=== PATIENT | male | born 1995 | race Caucasian/White ===

== ENCOUNTER 2019-05-29 11:55 | Observation (INO) | payer BC, SELFPAY ==
[2019-05-29] VITALS (11 sets, daily range): BP systolic 105–127; BP diastolic 61–86; PULSE 69–95; RESP 15–20; TEMP 36.9–37.4; O2SAT 96–100; BMI 22.1
--- NOTE | 2019-05-29 | PATH_ITS ---
[facility] Accession Number: [id number] . 01 Material submitted: . appendix - APPENDIX . 02 Diagnosis: Appendix, Appendectomy: Acute appendicitis with serositis. No evidence of neoplasm. [facility] 05/31/2019 1155 Local . 02 Electronically signed: . Pepe Mirza MD, PhD, Pathologist NPI- [id number] . 01 Gross description: . Received in formalin, labeled appendix, is an intact appendix (length-6.5 cm, diameter-1.0 cm), with hernandez-pink, focally exudate-covered serosa and attached mesoappendix (up to 1.4 cm in depth). The resection margin is received stapled. The lumen contains red-brown turbid fluid. The wall is up to 0.3 cm thick. No nodules, masses or lesions are identified. The resection margins is inked blue. Section code: (A1) resection margin en face and three additional vendor representatives serial sections; (A2) one-half of the bivalved tip. ([id number]) /MRV 05/30/2019 1054 Local . 02 Pathologist provided ICD-10: K35.80 . 02 CPT . 697894 Performed at: 01 [facility] [address] [facility], [place], [place] [id number] MD Doc Paolmares MD Phone: [phone] Performed at: 02 [facility] [address] [place], [place] [id number] MD Melissa Saxena MD Phone: [phone]
--- NOTE | 2019-05-29 12:11 | ED_ITS ---
HPI - Abdominal Pain <WES Dave-BC - Last Filed: 05/29/19 16:05> General Chief Complaint: Abdominal Pain Stated Complaint: Suspects appendicitis Time Seen by Provider: 05/29/19 12:07 Source: patient Mode of arrival: Ambulatory Limitations: no limitations History of Present Illness HPI narrative: The patient is a 24-year-old male nonsmoker who denies pertinent medical history presents with a chief complaint of 3-4 days of abdominal pain. Started periumbilical and radiate down to his right lower quadrant starting yesterday. He states that his pain has been getting worse since yesterday and especially this morning. He denies any fevers, nausea vomiting or diarrhea. Last solid intake was salad last night then he drank some kombucha this morning. States he thinks he is constipated last bowel movement was yesterday. He did not have 1 this morning. He states that he initially attributed his pain to ?adjusting to quarantine and staying home.He states he does not have a primary care provider, is from [place] and staying with his family up in town here. He states that his pain is worse with movement. He denies any testicular pain, denies urinary symptoms. Related Data Home Medications Medication Instructions Recorded Confirmed multivitamin 1 cap PO DAILY 05/29/19 05/29/19 Previous Rx's Medication Instructions Recorded acetaminophen [Tylenol] 650 mg PO QID PRN #60 cap 05/29/19 oxycodone 5 mg PO Q6H PRN #30 tab 05/29/19 Allergies Allergy/AdvReac Type Severity Reaction Status Date / Time No Known Drug Allergies Allergy Verified 05/29/19 12:05 Review of Systems <TORI Dave - Last Filed: 05/29/19 16:05> Review of Systems Narrative: GENERAL: Denies chills, fatigue, malaise, fever, sweats. HEENT: Denies sinus pain, ear pain, sore throat, difficulty swallowing, dizziness. RESPIRATORY: Denies dyspnea, cough, wheezing, hemoptysis, sputum. CARDIOVASCULAR: Denies chest pain, palpitations, orthopnea, edema, GASTROINTESTINAL: See HPI : Denies dysuria, frequency, incontinence, hematuria, urinary retention. MUSCULOSKELETAL: denies weakness, joint pain, or bony pain SKIN: Denies rash, skin lesions, or other NEUROLOGIC: Denies weakness, headache, numbness, change in speech, confusion, seizures, incoordination. PSYCHIATRIC: No concerning psychosocial issues. 12 point review of systems is negative except for those stated above Patient History <CASA DaveP-BC - Last Filed: 05/29/19 16:05> Medical History (Updated 05/29/19 @ 16:22 by Cassie Avitia RN) Closed left arm fracture (Acute) Surgical History (Updated 05/29/19 @ 15:54 by Evaristo Haywood MD) History of orthopedic surgery (Acute) Social History Smoking Status: Never smoker Smoking Status: Never smoker alcohol intake frequency: 0-2 drinks per day Substance Use Type: does not use Exam <Silvana Savage TORI - Last Filed: 05/29/19 16:05> Narrative Exam Narrative: GENERAL: This is a well-nourished, well-developed patient, appears uncomfortable HEAD: Atraumatic. Normocephalic. No temporal or scalp tenderness. EYES: Pupils equal round and reactive. Extraocular motions intact. No scleral icterus. No injection or drainage. ENT: Nose without bleeding, purulent drainage or septal hematoma. Throat without erythema, tonsillar hypertrophy or exudate. Uvula midline. Airway patent. NECK: Trachea midline. No JVD or lymphadenopathy. Supple, nontender, no meningeal signs. CARDIOVASCULAR: Regular rate and rhythm without murmurs, gallops, or rubs. RESPIRATORY: Clear to auscultation. Breath sounds equal bilaterally. No wheezes, rales, or rhonchi. GASTROINTESTINAL: Abdomen soft, diffusely tender with active bowel sounds, nondistended. No hepato-splenomegaly, or palpable masses. Pain to palpation right lower quadrant. Rebound tenderness noted. Positive peritoneal signs. EXTREMITIES: No clubbing, cyanosis, or edema. No joint tenderness, effusion, or edema noted. BACK: Nontender without deformity or crepitance. No flank tenderness. NEURO: AOx3. SKIN: No rash or erythema on visible skin Initial Vital Signs Initial Vital Signs: Vital Signs Temperature 98.5 F 05/29/19 12:00 Pulse Rate 72 05/29/19 12:00 Respiratory Rate 18 05/29/19 12:00 Blood Pressure 111/70 05/29/19 12:00 Pulse Oximetry 100 05/29/19 12:00 <Kamilah Trejo MD - Last Filed: 05/30/19 07:05> Initial Vital Signs Initial Vital Signs: Vital Signs Temperature 98.5 F 05/29/19 12:00 Pulse Rate 72 05/29/19 12:00 Respiratory Rate 18 05/29/19 12:00 Blood Pressure 111/70 05/29/19 12:00 Pulse Oximetry 100 05/29/19 12:00 Scores <TORI Dave - Last Filed: 05/29/19 16:05> GCS Craig coma scale eye opening: Spontaneous [place] coma scale verbal response: Orientated [place] coma scale motor response: Obey commands Craig coma scale total score: 15 Course <TORI Dave - Last Filed: 05/29/19 16:05> Orders Ordered: Discontinued Medications Benzocaine (Cepacol Lozenge) 1 each PO PRN PRN PRN Reason: Sore Throat Bupivacaine HCl (Sensorcaine 0.5% (Pf)) 30 ml INJ NOW ONE Stop: 05/29/19 17:16 Last Admin: 05/29/19 17:15 Dose: 30 ml Documented by: DEMOND Fentanyl (Sublimaze) 0 mcg IV Q5M PRN PRN Reason: Pain, Moderate (4-6) Hydromorphone HCl (Dilaudid) 0 mg IV Q5M PRN PRN Reason: Pain, Moderate (4-6) Hydroxyzine HCl (Vistaril) 25 mg IM NOW PRN PRN Reason: Pain, Mild (1-3) Sodium Chloride (Normal Saline 0.9%) 1,000 mls @ 1,000 mls/hr IV BOLUS ONE Stop: 05/29/19 13:09 Last Infusion: 05/29/19 14:00 Dose: 0 mls/hr Documented by: Admin: 05/29/19 12:52 Dose: 1,000 mls/hr Documented by: AL Piperacillin/Tazobactam/Dextrose (Zosyn) 3.375 gm in 50 mls @ 100 mls/hr IV NOW ONE Stop: 05/29/19 15:26 Last Infusion: 05/29/19 15:35 Dose: 0 mls/hr Documented by: Admin: 05/29/19 15:05 Dose: 100 mls/hr Documented by: AUDRA Sodium Chloride (Normal Saline 0.9%) 1,000 mls @ 150 mls/hr IV CONT MC Last Infusion: 05/29/19 15:54 Dose: 0 mls/hr Documented by: Admin: 05/29/19 15:05 Dose: 150 mls/hr Documented by: AUDRA Lactated Ringer's (Lactated Ringers) 1,000 mls @ 125 mls/hr IV NOW ONE Stop: 05/30/19 01:04 Last Infusion: 05/29/19 18:25 Dose: 0 mls/hr Documented by: Admin: 05/29/19 17:07 Dose: 125 mls/hr Documented by: Infusion: 05/29/19 17:06 Dose: 0 mls/hr Documented by: Admin: 05/29/19 16:05 Dose: 125 mls/hr Documented by: DANNY Lactated Ringer's (Lactated Ringers) 1,000 mls @ 42 mls/hr IV CONT MC Lorazepam (Ativan) 0.25 mg IV NOW PRN PRN Reason: Anxiety Meperidine HCl (Demerol) 25 mg IV PACUNOW PRN PRN Reason: Moderate pain or shivering Metoclopramide HCl (Reglan) 10 mg IV NOW PRN PRN Reason: Nausea And Vomiting Morphine Sulfate (Morphine) 2 mg IV NOW ONE Stop: 05/29/19 12:11 Last Admin: 05/29/19 12:52 Dose: 2 mg Documented by: AL Ondansetron HCl (Zofran) 4 mg IV NOW ONE Stop: 05/29/19 12:07 Last Admin: 05/29/19 12:52 Dose: 4 mg Documented by: AL Ondansetron HCl (Zofran) 4 mg IV NOW PRN PRN Reason: Nausea And Vomiting Oxycodone HCl (Percolone) 5 mg PO PACUNOW PRN PRN Reason: Mild or moderate pain Last Admin: 05/29/19 17:50 Dose: 5 mg Documented by: KRYSTAL Vital Signs Vital signs: Vital Signs - 8 hr 05/29/19 12:00 05/29/19 12:43 05/29/19 13:30 Temperature 98.5 F Pulse Rate 72 72 69 Respiratory Rate 18 18 18 Blood Pressure 111/70 Blood Pressure [Left Arm] 115/67 110/62 Pulse Oximetry 100 100 100 <Kamilah Trejo MD - Last Filed: 05/30/19 07:05> Orders Ordered: Discontinued Medications Benzocaine (Cepacol Lozenge) 1 each PO PRN PRN PRN Reason: Sore Throat Bupivacaine HCl (Sensorcaine 0.5% (Pf)) 30 ml INJ NOW ONE Stop: 05/29/19 17:16 Last Admin: 05/29/19 17:15 Dose: 30 ml Documented by: DEMOND Fentanyl (Sublimaze) 0 mcg IV Q5M PRN PRN Reason: Pain, Moderate (4-6) Hydromorphone HCl (Dilaudid) 0 mg IV Q5M PRN PRN Reason: Pain, Moderate (4-6) Hydroxyzine HCl (Vistaril) 25 mg IM NOW PRN PRN Reason: Pain, Mild (1-3) Sodium Chloride (Normal Saline 0.9%) 1,000 mls @ 1,000 mls/hr IV BOLUS ONE Stop: 05/29/19 13:09 Last Infusion: 05/29/19 14:00 Dose: 0 mls/hr Documented by: Admin: 05/29/19 12:52 Dose: 1,000 mls/hr Documented by: AL Piperacillin/Tazobactam/Dextrose (Zosyn) 3.375 gm in 50 mls @ 100 mls/hr IV NOW ONE Stop: 05/29/19 15:26 Last Infusion: 05/29/19 15:35 Dose: 0 mls/hr Documented by: Admin: 05/29/19 15:05 Dose: 100 mls/hr Documented by: AUDRA Sodium Chloride (Normal Saline 0.9%) 1,000 mls @ 150 mls/hr IV CONT MC Last Infusion: 05/29/19 15:54 Dose: 0 mls/hr Documented by: Admin: 05/29/19 15:05 Dose: 150 mls/hr Documented by: SCANAPO Lactated Ringer's (Lactated Ringers) 1,000 mls @ 125 mls/hr IV NOW ONE Stop: 05/30/19 01:04 Last Infusion: 05/29/19 18:25 Dose: 0 mls/hr Documented by: Admin: 05/29/19 17:07 Dose: 125 mls/hr Documented by: Infusion: 05/29/19 17:06 Dose: 0 mls/hr Documented by: Admin: 05/29/19 16:05 Dose: 125 mls/hr Documented by: DANNY Lactated Ringer's (Lactated Ringers) 1,000 mls @ 42 mls/hr IV CONT CM Lorazepam (Ativan) 0.25 mg IV NOW PRN PRN Reason: Anxiety Meperidine HCl (Demerol) 25 mg IV PACUNOW PRN PRN Reason: Moderate pain or shivering Metoclopramide HCl (Reglan) 10 mg IV NOW PRN PRN Reason: Nausea And Vomiting Morphine Sulfate (Morphine) 2 mg IV NOW ONE Stop: 05/29/19 12:11 Last Admin: 05/29/19 12:52 Dose: 2 mg Documented by: AL Ondansetron HCl (Zofran) 4 mg IV NOW ONE Stop: 05/29/19 12:07 Last Admin: 05/29/19 12:52 Dose: 4 mg Documented by: AL Ondansetron HCl (Zofran) 4 mg IV NOW PRN PRN Reason: Nausea And Vomiting Oxycodone HCl (Percolone) 5 mg PO PACUNOW PRN PRN Reason: Mild or moderate pain Last Admin: 05/29/19 17:50 Dose: 5 mg Documented by: KRYSTAL Vital Signs Vital signs: Vital Signs - 8 hr 05/29/19 12:00 05/29/19 12:43 05/29/19 13:30 Temperature 98.5 F Pulse Rate 72 72 69 Respiratory Rate 18 18 18 Blood Pressure 111/70 Blood Pressure [Left Arm] 115/67 110/62 Pulse Oximetry 100 100 100 MDM - Abdominal Pain <TORI Dave - Last Filed: 05/29/19 16:05> Lab Data Result diagrams: 05/29/19 12:40 05/29/19 12:40 Labs: Lab Results 05/29/19 05/29/19 05/29/19 Range/Units 12:40 12:40 12:40 WBC 13.5 H (4.5-11.0) X10^3/uL RBC 4.66 (4.5-5.9) X10^6/uL Hgb 15.3 (13.5-17.5) g/dL Hct 43.8 (41-53) % MCV 94.0 (80-100) fL MCH 32.8 (26-34) PG MCHC 34.9 (30-36) % RDW 12.1 (11.6-14.8) % Plt Count 170 (150-400) X10^3/uL Neut % (Auto) 87.3 H (50-75) % Lymph % (Auto) 6.0 L (25-40) % [place] % (Auto) 6.2 (3-14) % Eos % (Auto) 0.3 L (2-4) % Baso % (Auto) 0.2 (0-2) % Neut # (Auto) 59430 H (5839-6673) /uL Lymph # (Auto) 800 L (0430-6818) /uL [place] # (Auto) 800 (0-900) /uL Eos # (Auto) 0 (0-450) /uL Baso # (Auto) 0 (0-100) /uL PT 12.0 (10.1-12.7) SECONDS INR 1.0 (0.9-1.3) APTT 32 (26.4-36.2) SECONDS Sodium 136 L (137-145) mmol/L Potassium 4.5 (3.4-5.1) mmol/L Chloride 100 (98-107) mmol/L Carbon Dioxide 30 (22-32) mmol/L BUN 11 (9-20) mg/dL Creatinine 0.66 (0.66-1.25) mg/dL Estimated GFR > 60.0 (>60) mL/min BUN/Creatinine Ratio 16.7 (6-22) Glucose 95 (70-100) mg/dL Calcium 9.5 (8.4-10.2) mg/dL Total Bilirubin 1.2 (0.2-1.3) mg/dL AST 26 (17-59) IU/L ALT 16 (<50) IU/L Alkaline Phosphatase 59 (38-126) U/L Total Protein 8.3 H (6.3-8.2) g/dL Albumin 4.8 (3.5-5.0) g/dL Globulin 3.5 (1.7-4.1) g/dL Albumin/Globulin Ratio 1.4 (1.0-2.8) Amylase (30-110) U/L Lipase < 10 L (23-300) U/L 05/28/ Range/Units 12:40 WBC (4.5-11.0) X10^3/uL RBC (4.5-5.9) X10^6/uL Hgb (13.5-17.5) g/dL Hct (41-53) % MCV (80-100) fL MCH (26-34) PG MCHC (30-36) % RDW (11.6-14.8) % Plt Count (150-400) X10^3/uL Neut % (Auto) (50-75) % Lymph % (Auto) (25-40) % [place] % (Auto) (3-14) % Eos % (Auto) (2-4) % Baso % (Auto) (0-2) % Neut # (Auto) (6699-6911) /uL Lymph # (Auto) (3308-3019) /uL [place] # (Auto) (0-900) /uL Eos # (Auto) (0-450) /uL Baso # (Auto) (0-100) /uL PT (10.1-12.7) SECONDS INR (0.9-1.3) APTT (26.4-36.2) SECONDS Sodium (137-145) mmol/L Potassium (3.4-5.1) mmol/L Chloride (98-107) mmol/L Carbon Dioxide (22-32) mmol/L BUN (9-20) mg/dL Creatinine (0.66-1.25) mg/dL Estimated GFR (>60) mL/min BUN/Creatinine Ratio (6-22) Glucose (70-100) mg/dL Calcium (8.4-10.2) mg/dL Total Bilirubin (0.2-1.3) mg/dL AST (17-59) IU/L ALT (<50) IU/L Alkaline Phosphatase (38-126) U/L Total Protein (6.3-8.2) g/dL Albumin (3.5-5.0) g/dL Globulin (1.7-4.1) g/dL Albumin/Globulin Ratio (1.0-2.8) Amylase 41 (30-110) U/L Lipase (23-300) U/L Point of care testing: Urine Dip Bedside Urine Glucose Negative Bedside Urine Bilirubin - Negative Bedside Urine Ketone - Negative Urine Specific [place] 1.015 Bedside Urine Occult Blood - Negative Bedside Urine pH 8.5 Bedside Urine Protein - Negative Bedside Urine Urobilinogen - Negative Bedside Urine Nitrite - Negative Bedside Urine Leukocytes - Negative Esterase Imaging Data Abdominal x-ray: Radiologist's Impression: [address] [place] [id number] XRay Report Signed Patient: Hemal Rutledge PMR#: [id number] : 1995Acct:[id number] Age/Sex: 24 / MDate of Service: 05/29/19 Loc: ED Accession Number: [id number] Procedure: XR acute abdomen series Ordering Provider: Silvana Savage PROCEDURE: XR ACUTE ABDOMEN SERIES INDICATIONS: abd pain TECHNIQUE: One view chest and two views of the abdomen were acquired. COMPARISON: None. FINDINGS: Surgical changes and devices: There is good fixation is seen of the distal right clavicle. Chest: Lungs are clear. Heart size is normal. No pleural effusions. No pneumoperitoneum. Abdomen: Bowel gas pattern is normal. A moderate amount of stool is seen within the colon. No suspicious calcifications. Visualized solid organ contours appear normal. Bones: No suspicious bony lesions. IMPRESSION: There is a moderate amount of stool seen within the colon. Please correlate with an underlying history of constipation. Dictated by: Nacho Alexandra M.D. on 05/29/2019 at 11:43 Approved by: Nacho Alexandra M.D. on 05/29/2019 at 11:44 CT scan - abdomen/pelvis: Radiologist's Impression: [address] [place] [id number] Scan Report Signed Patient: Hemal Rutledge PMR#: [id number] : 1995Acct:[id number] Age/Sex: 24 / MDate of Service: 05/29/19 Loc: ED Accession Number: [id number] Procedure: CT abdomen pelvis w con Ordering Provider: Silvana Savage PROCEDURE: CT ABDOMEN PELVIS W CON INDICATIONS: RLQ pain TECHNIQUE: After the administration of intravenous contrast, 5 mm thick sections acquired from the diaphragm to the symphysis. 5 mm coronal and sagittal reformats were acquired. For radiation dose reduction, the following was used: automated exposure control, adjustment of mA and/or kV according to patient size. COMPARISON: None. FINDINGS: Image quality: Excellent. ABDOMEN: Lung bases: Lung bases are clear. Heart size is normal. Solid organs: Liver is normal in size and enhancement. Gallbladder appears normal. Biliary system is non dilated. Pancreas enhances normally. Spleen is normal in size and enhancement. No adrenal nodules. Kidneys demonstrate normal size and enhancement, without hydronephrosis. Peritoneum and bowel: The tip of the appendix is enlarged and inflamed measuring up to 1.3 cm. There is moderate periappendiceal inflammatory change. No extraluminal gas or associated fluid collection. Minor generalized inflammatory changes are present in the mesenteric fat the right abdomen. No evidence of ileus or obstruction. A small amount of free fluid is present dependently in the pelvis. Bowel loops demonstrate normal wall thickness and caliber. Nodes and vessels: No retroperitoneal or mesenteric adenopathy by size criteri a. Aorta and inferior vena cava are normal in size. Miscellaneous: No ventral hernias. PELVIS: Genitourinary: Bladder wall thickness is normal. Miscellaneous: No inguinal hernias or adenopathy. Bones: No suspicious bony lesions. No vertebral body compression fractures. IMPRESSION: 1. Findings consistent with acute appendicitis without perforation or abscess formation. 2. No evidence of bowel obstruction. Dictated by: Shae Sutton M.D. on 05/29/2019 at 14:20 Approved by: Shae Sutton M.D. on 05/29/2019 at 14:[address] [facility] Narrative Medical decision making narrative: The patient is a 24-year-old male who presents with a chief complaint of abdominal pain for the past 3-4 days. Started periumbilical, then radiating down to his right lower quadrant. He has no signs of systemic illness, no vomiting fever diarrhea etcetera. However he is noted to have slight leukocytosis on his labs. CT scan is concerning for acute appendicitis. I spoke with Dr. Haywood, surgery on-call who assumed care of the patient. Zosyn was given for his instructions. The patient had Zofran, morphine, and fluids in the emergency department. The patient and his mother state comfort and understanding of planned surgery with Dr. Haywood. <Kamilah Trejo MD - Last Filed: 05/30/19 07:05> Lab Data Labs: Lab Results 05/29/19 05/29/19 05/29/19 Range/Units 12:40 12:40 12:40 WBC 13.5 H (4.5-11.0) X10^3/uL RBC 4.66 (4.5-5.9) X10^6/uL Hgb 15.3 (13.5-17.5) g/dL Hct 43.8 (41-53) % MCV 94.0 (80-100) fL MCH 32.8 (26-34) PG MCHC 34.9 (30-36) % RDW 12.1 (11.6-14.8) % Plt Count 170 (150-400) X10^3/uL Neut % (Auto) 87.3 H (50-75) % Lymph % (Auto) 6.0 L (25-40) % [place] % (Auto) 6.2 (3-14) % Eos % (Auto) 0.3 L (2-4) % Baso % (Auto) 0.2 (0-2) % Neut # (Auto) 75495 H (3131-3920) /uL Lymph # (Auto) 800 L (9749-4025) /uL [place] # (Auto) 800 (0-900) /uL Eos # (Auto) 0 (0-450) /uL Baso # (Auto) 0 (0-100) /uL PT 12.0 (10.1-12.7) SECONDS INR 1.0 (0.9-1.3) APTT 32 (26.4-36.2) SECONDS Sodium 136 L (137-145) mmol/L Potassium 4.5 (3.4-5.1) mmol/L Chloride 100 (98-107) mmol/L Carbon Dioxide 30 (22-32) mmol/L BUN 11 (9-20) mg/dL Creatinine 0.66 (0.66-1.25) mg/dL Estimated GFR > 60.0 (>60) mL/min BUN/Creatinine Ratio 16.7 (6-22) Glucose 95 (70-100) mg/dL Calcium 9.5 (8.4-10.2) mg/dL Total Bilirubin 1.2 (0.2-1.3) mg/dL AST 26 (17-59) IU/L ALT 16 (<50) IU/L Alkaline Phosphatase 59 (38-126) U/L Total Protein 8.3 H (6.3-8.2) g/dL Albumin 4.8 (3.5-5.0) g/dL Globulin 3.5 (1.7-4.1) g/dL Albumin/Globulin Ratio 1.4 (1.0-2.8) Amylase (30-110) U/L Lipase < 10 L (23-300) U/L 05/28/ Range/Units 12:40 WBC (4.5-11.0) X10^3/uL RBC (4.5-5.9) X10^6/uL Hgb (13.5-17.5) g/dL Hct (41-53) % MCV (80-100) fL MCH (26-34) PG MCHC (30-36) % RDW (11.6-14.8) % Plt Count (150-400) X10^3/uL Neut % (Auto) (50-75) % Lymph % (Auto) (25-40) % [place] % (Auto) (3-14) % Eos % (Auto) (2-4) % Baso % (Auto) (0-2) % Neut # (Auto) (2899-3462) /uL Lymph # (Auto) (4498-6460) /uL [place] # (Auto) (0-900) /uL Eos # (Auto) (0-450) /uL Baso # (Auto) (0-100) /uL PT (10.1-12.7) SECONDS INR (0.9-1.3) APTT (26.4-36.2) SECONDS Sodium (137-145) mmol/L Potassium (3.4-5.1) mmol/L Chloride (98-107) mmol/L Carbon Dioxide (22-32) mmol/L BUN (9-20) mg/dL Creatinine (0.66-1.25) mg/dL Estimated GFR (>60) mL/min BUN/Creatinine Ratio (6-22) Glucose (70-100) mg/dL Calcium (8.4-10.2) mg/dL Total Bilirubin (0.2-1.3) mg/dL AST (17-59) IU/L ALT (<50) IU/L Alkaline Phosphatase (38-126) U/L Total Protein (6.3-8.2) g/dL Albumin (3.5-5.0) g/dL Globulin (1.7-4.1) g/dL Albumin/Globulin Ratio (1.0-2.8) Amylase 41 (30-110) U/L Lipase (23-300) U/L Point of care testing: Urine Dip Bedside Urine Glucose Negative Bedside Urine Bilirubin - Negative Bedside Urine Ketone - Negative Urine Specific [place] 1.015 Bedside Urine Occult Blood - Negative Bedside Urine pH 8.5 Bedside Urine Protein - Negative Bedside Urine Urobilinogen - Negative Bedside Urine Nitrite - Negative Bedside Urine Leukocytes - Negative Esterase Discharge Plan Departure Patient Disposition: Admitted as Observation Clinical Impression: Acute appendicitis Discharge Date/Time: 05/29/19 15:55 Instructions: DI for an Appendectomy, DI for Laparoscopy, DI for Prescription Opioid Use, [facility]: Wound Care Referrals: Evaristo Haywood MD [Physician] - Admit Date/Time: 05/29/19 15:12 Admit Provider: Evaristo Haywood
[2019-05-29 12:52] LABS: Add Manual Diff / Slide Review NO; Basophils Absolute Auto 0 /uL (0-100); Basophils Percent Auto 0.2 % (0-2); Eosinophils Absolute Auto 0 /uL (0-450); Eosinophils Percent Auto 0.3 % (2-4); Hematocrit 43.8 % (41-53); Hemoglobin 15.3 g/dL (13.5-17.5); Lymphocytes Absolute Auto 800 /uL (1100-4500); Mean Corpuscular HGB Conc 34.9 % (30-36); Mean Corpuscular Hemoglobin 32.8 PG (26-34); Monocytes Absolute Auto 800 /uL (0-900); Monocytes Percent Auto 6.2 % (3-14); Neutrophils Absolute Auto 11800 /uL (1500-7000); Neutrophils Percent Auto 87.3 % (50-75); Platelet Count 170 X10^3/uL (150-400); Red Blood Cell Count 4.66 X10^6/uL (4.5-5.9); Red Cell Distribution Width 12.1 % (11.6-14.8); White Blood Cell Count 13.5 X10^3/uL (4.5-11.0)
[2019-05-29] MEDS: SODIUM CHLORIDE 0.9% 1,000 ML 1000 ML IV (12:52)
[2019-05-29] MEDS: ONDANSETRON 4 MG/2 ML INJ IV (12:52)
[2019-05-29] MEDS: MORPHINE 2 MG/ML INJ IV (12:52)
[2019-05-29 13:04] LABS: PTT Partial Thromboplastin Tim 32 SECONDS (26.4-36.2)
[2019-05-29 13:05] LABS: Alanine Aminotransferase 16 IU/L (<50); Albumin 4.8 g/dL (3.5-5.0); Albumin Globulin Ratio 1.4 (1.0-2.8); Alkaline Phosphatase 59 U/L (38-126); Amylase 41 U/L (30-110); Aspartate Aminotransferase 26 IU/L (17-59); BUN Creatinine Ratio 16.7 (6-22); Bilirubin Total 1.2 mg/dL (0.2-1.3); Blood Urea Nitrogen 11 mg/dL (9-20); Calcium 9.5 mg/dL (8.4-10.2); Carbon Dioxide 30 mmol/L (22-32); Chloride 100 mmol/L (98-107); Estimated Glomerular Filt Rate > 60.0 mL/min (>60); Globulin 3.5 g/dL (1.7-4.1); Glucose 95 mg/dL (70-100); HEMOLYSIS < 15 (0-50); Potassium 4.5 mmol/L (3.4-5.1); Sodium 136 mmol/L (137-145); Total Protein 8.3 g/dL (6.3-8.2)
[2019-05-29 13:12] LABS: Lipase < 10 U/L (23-300)
--- NOTE | 2019-05-29 13:21 | DI.CT.S_ITS ---
PROCEDURE: CT ABDOMEN PELVIS W CON INDICATIONS: RLQ pain TECHNIQUE: After the administration of intravenous contrast, 5 mm thick sections acquired from the diaphragm to the symphysis. 5 mm coronal and sagittal reformats were acquired. For radiation dose reduction, the following was used: automated exposure control, adjustment of mA and/or kV according to patient size. COMPARISON: None. FINDINGS: Image quality: Excellent. ABDOMEN: Lung bases: Lung bases are clear. Heart size is normal. Solid organs: Liver is normal in size and enhancement. Gallbladder appears normal. Biliary system is non dilated. Pancreas enhances normally. Spleen is normal in size and enhancement. No adrenal nodules. Kidneys demonstrate normal size and enhancement, without hydronephrosis. Peritoneum and bowel: The tip of the appendix is enlarged and inflamed measuring up to 1.3 cm. There is moderate periappendiceal inflammatory change. No extraluminal gas or associated fluid collection. Minor generalized inflammatory changes are present in the mesenteric fat the right abdomen. No evidence of ileus or obstruction. A small amount of free fluid is present dependently in the pelvis. Bowel loops demonstrate normal wall thickness and caliber. Nodes and vessels: No retroperitoneal or mesenteric adenopathy by size criteria. Aorta and inferior vena cava are normal in size. Miscellaneous: No ventral hernias. PELVIS: Genitourinary: Bladder wall thickness is normal. Miscellaneous: No inguinal hernias or adenopathy. Bones: No suspicious bony lesions. No vertebral body compression fractures. IMPRESSION: 1. Findings consistent with acute appendicitis without perforation or abscess formation. 2. No evidence of bowel obstruction. Dictated by: Shae Sutton M.D. on 05/29/2019 at 14:20 Approved by: Shae Sutton M.D. on 05/29/2019 at 14:24
[2019-05-29] MEDS: SODIUM CHLORIDE 0.9% 1,000 ML 150 ML IV (15:05)
[2019-05-29] MEDS: PIPERACILLIN-TAZO 3.375 GM/50 ML FROZ.PIGGY IV (15:05)
--- NOTE | 2019-05-29 15:25 | PM.HP.1 ---
History of Present Illness History of Present Illness Date Patient Seen: 05/29/19 Time Patient Seen: 15:52 Chief complaint: Suspects appendicitis Narrative: Hemal is a 24-year-old male seen in the emergency room with acute appendicitis. He developed vague abdominal discomfort bloating over the past 3 days which then became periumbilical last night finally right lower quadrant today. No associated with fever diarrhea does have mild nausea. CT abdomen pelvis demonstrates acute non perforated appendicitis and his white blood cell count is 13 afebrile. Last oral intake was liquid this morning at 9:00 a.m. last solid food was yesterday evening. He is a healthy individual no history of asthma, he has tolerated general anesthesia previously for or various orthopedic procedures. Patient History Medical History (Updated 05/29/19 @ 15:55 by Evaristo Haywood MD) Closed left arm fracture (Acute) Surgical History (Updated 05/29/19 @ 15:54 by Evaristo Haywood MD) History of orthopedic surgery (Acute) Family & Social History Safety & Behavioral: Feels Safe in Current Yes Environment Been Physically Hurt or No Threatened By a Person Tobacco & Substance use: Smoking Status Never smoker alcohol intake frequency 0-2 drinks per day Substance Use Type does not use Meds Home Medications and Allergies Home Medications Medication Instructions Recorded Confirmed Type multivitamin 1 cap PO DAILY 05/29/19 05/29/19 History Allergies Allergy/AdvReac Type Severity Reaction Status Date / Time No Known Drug Allergies Allergy Verified 05/29/19 12:05 Review of Systems Review of Systems Narrative: A 10 point review of systems is negative except as noted in the HPI Exam Vital Signs (past 8 hours): - 05/29/19 12:00 05/29/19 12:43 05/29/19 13:30 Temperature 98.5 F Pulse Rate 72 72 69 Respiratory Rate 18 18 18 Blood Pressure 111/70 Blood Pressure [Left Arm] 115/67 110/62 Pulse Oximetry 100 100 100 Oxygen Delivery Method Room Air Narrative Exam Narrative: General-no acute distress, well nourished adult male HEENT-moist mucous membranes, no scleral icterus Neck-supple, no lymphadenopathy Chest- non labored respirations, clear to auscultation bilaterally Cardiac-regular rate no peripheral edema Abdomen-soft, mildly tender right lower quadrant no peritonitis Extremities-warm, well perfused Neurological-alert and oriented, no focal deficits Objective Labs Result Diagrams: 05/29/19 12:40 05/29/19 12:40 Labs: Laboratory Results - last 24 hr 05/29/19 05/29/19 05/29/19 12:40 12:40 12:40 WBC 13.5 H RBC 4.66 Hgb 15.3 Hct 43.8 MCV 94.0 MCH 32.8 MCHC 34.9 RDW 12.1 Plt Count 170 Neut % (Auto) 87.3 H Lymph % (Auto) 6.0 L [place] % (Auto) 6.2 Eos % (Auto) 0.3 L Baso % (Auto) 0.2 Neut # (Auto) 58578 H Lymph # (Auto) 800 L [place] # (Auto) 800 Eos # (Auto) 0 Baso # (Auto) 0 PT 12.0 INR 1.0 APTT 32 Sodium 136 L Potassium 4.5 Chloride 100 Carbon Dioxide 30 BUN 11 Creatinine 0.66 Estimated GFR > 60.0 BUN/Creatinine Ratio 16.7 Glucose 95 Calcium 9.5 Total Bilirubin 1.2 AST 26 ALT 16 Alkaline Phosphatase 59 Total Protein 8.3 H Albumin 4.8 Globulin 3.5 Albumin/Globulin Ratio 1.4 Amylase Lipase < 10 L 05/29/19 12:40 WBC RBC Hgb Hct MCV MCH MCHC RDW Plt Count Neut % (Auto) Lymph % (Auto) [place] % (Auto) Eos % (Auto) Baso % (Auto) Neut # (Auto) Lymph # (Auto) [place] # (Auto) Eos # (Auto) Baso # (Auto) PT INR APTT Sodium Potassium Chloride Carbon Dioxide BUN Creatinine Estimated GFR BUN/Creatinine Ratio Glucose Calcium Total Bilirubin AST ALT Alkaline Phosphatase Total Protein Albumin Globulin Albumin/Globulin Ratio Amylase 41 Lipase Assessment & Plan Assessment and plan (1) Acute appendicitis: Current visit: Yes Status: Acute Assessment & Plan narrative: Hemal is a 24-year-old male with acute appendicitis. He has right lower quadrant tenderness no peritonitis white blood cell count 13 [address]feb[address]. I reviewed his CT abdomen pelvis which demonstrates non perforated acute appendicitis. I had a long discussion regarding treatment of non operative therapy versus laparoscopic appendectomy. I told him that my preference would be to proceed with appendectomy followed by discharge from the postoperative recovery unit should this be uncomplicated appendicitis. The reason for this is to minimize his hospital exposure to leroy virus. The alternative would be to admit him for IV antibiotic therapy followed by a transition to oral therapy and introduction of diet but this brings a potentially longer duration of hospital stay increasing his risk of mani the virus. He is in agreement with this plan. He has received IV Zosyn in the emergency room. We discussed the technical nature of the operation the expected postoperative recovery and its risks including conversion to open, bleeding, infection, staple line leak, damage to surrounding structures. His question is have been answered and he is in agreement with this plan.
--- NOTE | 2019-05-29 15:57 | SUR.OPER ---
Supine on padded OR bed, head on pillow, arms secured on padded arm boards at <90 degrees abduction, legs uncrossed, safety belt at thigh, tape over blanket over lower legs.
[2019-05-29] MEDS: LACTATED RINGERS 1,000 ML 125 ML IV ×2 (16:05→17:07)
[2019-05-29] MEDS: BUPIVACAINE 0.5% (PF) VIAL 30 ML INJ (17:15)
--- NOTE | 2019-05-29 17:41 | PM.OP.1 ---
Operative Date/Time/Diagnoses Date of procedure: 05/29/19 Time of procedure: 17:41 Pre-op diagnosis: Acute appendicitis Post-op diagnosis: same Procedure & Clinicians Procedure: Laparoscopic appendectomy Same procedure as scheduled: Yes Indications: Acute appendicitis non perforated without abscess Surgeon: Evaristo Haywood Click Yes if Unassisted: Yes Anesthesia Type: General Operative Notes Findings: Acute non perforated appendicitis Specimen(s): other (Appendix) Estimated Blood Loss (mL): 15 Procedure in detail: Patient was brought to the operating room placed supine on the table. Bilateral lower extremity compression devices were applied. They were induced and intubated with an endotracheal tube. They received 3.375 g of Zosyn prior to skin incision. They were prepped and draped in sterile fashion. Time-out was performed to ensure the correct patient procedure necessary equipment within the operating room. The skin was infiltrated with 0.25% bupivacaine. A infraumbilical incision was made the umbilical stalk was grasped and elevated and incision was made and the abdomen was entered atraumatically. A 12 mm balloon trocar was then placed into the incision and pneumoperitoneum was established. The scope was then inspected abdomen inspected and there was no evidence of injury upon entry. Two 5 mm working ports were then placed supra pubic and in the left lower quadrant. The small bowel was then swept to the upper aspect of the abdomen. The tenie were followed to the base of the cecum where the appendix was identified. It was partially retrocecal and I mobilize the cecum medially in order to completely expose it by incising the white line of Toldt. The appendix was was mobilized from its lateral attachements.. It was acutely inflamed but not perforated. The appendix was grasped and the mesentery to the appendix was divided with the Ligature all the way to the base. The base of the appendix where it joined with the cecum was clearly identified. The appendix was then transected from the cecum at its base using the Endo GI stapler with a blue load. The specimen was removed using the Endo-Catch bag. The abdomen was irrigated and hemostasis was checked and staple lines were carefully inspected. The ports were then removed under direct visualization. The umbilical fascial incision was closed with 0 Vicryl in a figure-eight fashion. The skin wounds were irrigated and closed with Monocryl followed by the application of Dermabond. Sponge instrument count at the end of the operation was correct. The patient tolerated procedure well was extubated and transferred to the postoperative care unit in stable condition Complications: none Post-operative Condition: stable Disposition: PACU
[2019-05-29] MEDS: OXYCODONE IR 5 MG TABLET PO (17:50)
--- NOTE | 2019-05-29 18:09 | SUR.PHASEI ---
drowsy, oriented, pleasant to converse with. Tolerating crackers and juice well. Resp unlabored, skin warm and dry
--- NOTE | 2019-05-29 18:38 | SUR.PHASEII ---
183 Stable, pleasant, appears comfortable and states that his pain is 'different' than when he came in; it doesn't hurt on the right side like it did. Questions answered. Instructions reviewed with the patient; mom did not want to come into the hospital.
== END 2019-05-29 18:37 | disposition home or self-care (01) ==
LOC: ED 12:45 → AC 15:12
PROVIDERS: Admitting Provider Surgery; Emergency Provider Nurse Practitioner Family; Referring Provider Nurse Practitioner Family; Visit Provider Surgery
PROC: 0DTJ4ZZ Resection of Appendix, Percutaneous Endoscopic Approach (ICD-10-PCS; CPT 44970; principal; 2019-05-29 15:30)
DX: K35.80 Unspecified acute appendicitis (principal); R10.31 Right lower quadrant pain
CPT/HCPCS: 44970; 36415; 74022; 74177; 80053; 81003; 82150; 83690; 85025; 85610; 85730; 96361; 96365; 96375; 99220; 99284; G0378; J0330; J2250; J2270; J2405; J2543; J2704; J3010; Q9967

== ENCOUNTER → 2019-06-16 12:17 | Outpatient (CLI) | payer BC, SELFPAY ==
[2019-06-16 14:45] LABS: Alanine Aminotransferase 11 IU/L (<50)
[2019-06-17 02:53] LABS: Hepatitis B Surf Ab Qualitativ Non Reactive (.)
[2019-06-19 18:50] LABS: Hepatitis B Surface Antigen NEGATIVE s/c (NEGATIVE)
[2019-06-19 19:14] LABS: HIV 1 & 2 Ab/Ag 4th Gen Combo NEGATIVE (NEGATIVE); Hep C Virus Ab w/Reflex Quant NEGATIVE s/c (NEGATIVE)
== END ==
PROVIDERS: Referring Provider Family Medicine; Visit Provider Family Medicine
DX: Z77.21 Contact with and (suspected) exposure to potentially hazardous body fluids (principal); W46.0XXA Contact with hypodermic needle, initial encounter
CPT/HCPCS: 36415

== ENCOUNTER → 2019-07-07 10:39 | Outpatient (CLI) | payer BC, SELFPAY | PROVIDERS: Visit Provider Family Medicine | DX: R10.9 Unspecified abdominal pain (principal) | CPT/HCPCS: 87086 ==

== ENCOUNTER → 2019-07-14 15:42 | Outpatient (CLI) | payer BC, SELFPAY ==
[2019-07-14 16:18] LABS: Add Manual Diff / Slide Review NO; Basophils Absolute Auto 0 /uL (0-100); Basophils Percent Auto 0.6 % (0-2); Eosinophils Absolute Auto 200 /uL (0-450); Eosinophils Percent Auto 3.6 % (2-4); Hematocrit 43.2 % (41-53); Hemoglobin 15.3 g/dL (13.5-17.5); Lymphocytes Absolute Auto 1900 /uL (1100-4500); Lymphocytes Percent Auto 40.8 % (25-40); Mean Corpuscular HGB Conc 35.5 % (30-36); Mean Corpuscular Hemoglobin 33.2 PG (26-34); Mean Corpuscular Volume 93.7 fL (80-100); Monocytes Absolute Auto 500 /uL (0-900); Monocytes Percent Auto 10.1 % (3-14); Neutrophils Absolute Auto 2100 /uL (1500-7000); Neutrophils Percent Auto 44.9 % (50-75); Platelet Count 216 X10^3/uL (150-400); Red Blood Cell Count 4.61 X10^6/uL (4.5-5.9); Red Cell Distribution Width 12.6 % (11.6-14.8); White Blood Cell Count 4.8 X10^3/uL (4.5-11.0)
[2019-07-14 17:26] LABS: Alanine Aminotransferase 11 IU/L (<50); Albumin 5.2 g/dL (3.5-5.0); Albumin Globulin Ratio 1.7 (1.0-2.8); Alkaline Phosphatase 65 U/L (38-126); Aspartate Aminotransferase 24 IU/L (17-59); BUN Creatinine Ratio 16.1 (6-22); Bilirubin Total 0.6 mg/dL (0.2-1.3); Blood Urea Nitrogen 10 mg/dL (9-20); Carbon Dioxide 26 mmol/L (22-32); Chloride 101 mmol/L (98-107); Estimated Glomerular Filt Rate > 60.0 mL/min (>60); Globulin 3.1 g/dL (1.7-4.1); Glucose 88 mg/dL (70-100); HEMOLYSIS < 15 (0-50); Potassium 4.7 mmol/L (3.4-5.1); Sodium 138 mmol/L (137-145); Total Protein 8.3 g/dL (6.3-8.2)
== END ==
PROVIDERS: PCP Family Medicine; Referring Provider Nurse Practitioner Family; Visit Provider Nurse Practitioner Family
DX: R10.12 Left upper quadrant pain (principal)
CPT/HCPCS: 36415; 80053; 85025

== ENCOUNTER → 2019-07-20 13:03 | Outpatient (CLI) | payer BC, SELFPAY ==
--- NOTE | 2019-07-20 14:26 | DI.CT.S_ITS ---
PROCEDURE: CT ABDOMEN PELVIS W CON INDICATIONS: left lower quad pain, recent appy TECHNIQUE: After the administration of oral and intravenous contrast, 5 mm thick sections acquired from the diaphragms to the symphysis. 5 mm thick coronal and sagittal reformats were performed. For radiation dose reduction, the following was used: automated exposure control, adjustment of mA and/or kV according to patient size. COMPARISON: [facility], CT, CT ABDOMEN PELVIS W CON, 05/29/2019, 13:45. FINDINGS: Image quality: Excellent. ABDOMEN: Lung bases: There is a small indistinct nodule in the inferior right middle lobe measuring up to 4 mm which appears stable compared to the prior study. Heart size is normal. Solid organs: Evaluation of the liver demonstrates no focal hepatic lesions. The gallbladder appears within normal limits without calcified gallstones. Biliary system is non-dilated. Pancreas enhances normally. No peripancreatic fat stranding or fluid collections. No pancreatic duct dilatation. The spleen is mildly enlarged, measuring up to 13.3 cm. No adrenal nodules. Kidneys demonstrate no hydronephrosis. Peritoneum and bowel: Stomach, small bowel, and colon loops are normal in caliber and wall thickness. The appendix is surgically absent, with bowel sutures along the cecum. No pericecal fluid collection. There are a few colonic diverticula without acute diverticulitis. No free fluid or air. Nodes and vessels: No retroperitoneal or mesenteric adenopathy. Aorta and inferior vena cava are normal in caliber. Miscellaneous: No ventral hernias. PELVIS: Genitourinary: Bladder wall thickness is normal. Miscellaneous: No inguinal hernias or adenopathy. Bones: No suspicious bony lesions. No vertebral body compression fractures. IMPRESSION: 1. No definite acute intra-abdominal abnormality to correlate with left lower quadrant pain. 2. Mild colonic diverticulosis without acute diverticulitis. 3. Mild nonspecific splenomegaly. 4. No evidence of abscess or bowel obstruction. Dictated by: Doc Allen M.D. on 07/20/2019 at 15:38 Approved by: Doc Allen M.D. on 07/20/2019 at 15:43
== END ==
PROVIDERS: Referring Provider Nurse Practitioner Family; Visit Provider Nurse Practitioner Family
DX: R10.12 Left upper quadrant pain (principal); K57.90 Diverticulosis of intestine, part unspecified, without perforation or abscess without bleeding; R16.1 Splenomegaly, not elsewhere classified; Z90.49 Acquired absence of other specified parts of digestive tract
CPT/HCPCS: 74177; Q9967